=== PATIENT | male | born 1955 | race Caucasian/White ===

== ENCOUNTER 2018-07-11 17:15 | Emergency (ER) | payer BC ==
--- OUTSIDE RECORDS SUMMARY | 2018-07-11 17:16 | XMS REPORT ---
:1955 [facility] Address [address] [place] [address] [address] [place] [address] Care Team Providers Name Role Phone DR SILVIANO JAIMES Unavailable Unavailable Problems This patient has no known problems. Allergies, Adverse Reactions, Alerts This patient has no known allergies or adverse reactions. Medications This patient has no known medications. Encounters Start End Encounter Admission Attending Care Care Encounter Date/Time Date/Time Type Type Clinicians Facility Department ID 2017-09-24 2017-09-24 Outpatient [facility] GRANAD[facility] [place] [id number] 04:36:00 07:00:00 SILVIANO
[2018-07-11 18:47] LABS: Absolute Lymphocytes (CBC) 1.8 K/uL (0.7-4.9); Absolute Monocytes 0.6 K/uL (0.1-1.3); Absolute Neutrophil 2.9 K/uL (1.8-8.0); Basophils % 0.7 % (0-1.3); Eosinophils % 2.6 % (0-4.4); Hematocrit 45.8 % (39.6-49.0); Lymphocytes % 32.5 % (15.3-44.8); MCH 33.2 pg (27.0-35.0); MCV 95.1 fL (80-100); MPV 8.2 fL (7.6-11.3); Monocytes % 11.7 % (3.3-12.3); RBC Red Blood Cell Count 4.81 M/uL (4.33-5.43)
[2018-07-11 18:49] LABS: Protime INR 0.97
[2018-07-11 19:01] LABS: ALT/SGPT 36 U/L (12-78); AST/SGOT 17 U/L (15-37); Albumin 3.9 g/dL (3.4-5.0); Alkaline Phosphatase 75 U/L (45-117); BUN Blood Urea Nitrogen 16 mg/dL (7-18); Bicarbonate 27 mmol/L (21-32); Bilirubin Direct < 0.1 mg/dL (0-0.2); Bilirubin Total 0.2 mg/dL (0.2-1.0); Glucose Level 94 mg/dL (74-106); Magnesium 2.4 mg/dL (1.8-2.4); NT PRO-BNP 10 pg/mL (<125); Potassium 4.2 mmol/L (3.5-5.1); Protein, Total 7.5 g/dL (6.4-8.2); Sodium Level 142 mmol/L (136-145); Troponin (Emerg Dept Use Only) < 0.02 ng/mL (0.0-0.045)
--- NOTE | 2018-07-11 19:23 | RAD REPORT ---
EXAM DESCRIPTION: RAD - Chest Single View - 07/11/2018 6:59 pm CLINICAL HISTORY: CHEST PAIN Chest pain. COMPARISON: No comparisons FINDINGS: Portable technique limits examination quality. The lungs are mildly emphysematous but grossly clear. The heart is normal in size. No displaced fract ures. IMPRESSION: Mild COPD.
--- NOTE | 2018-07-11 20:40 | EDPHYS ---
Physician Documentation [facility] Name: Tomy Lema Age: 63 yrs Sex: Male : 1955 Arrival Date: 07/11/2018 Time: 17:19 Bed 19 Private MD: ED Physician Darryl Luna HPI: 07/11 20:36 This 63 yrs old Male presents to ER via Ambulatory with complaints of Chest gs Pain. 20:36 The patient or guardian reports chest pain that is located primarily in the anterior gs chest wall. Onset: 3 day(s) ago. The pain does not radiate. Associated signs and symptoms: Pertinent negatives: diaphoresis, near syncope, shortness of breath. The chest pain is described as burning, a heaviness. Duration: The patient or guardian reports multiple episodes, that wax and wane, with no pattern, the episodes last approximately 20 minute(s). Modifying factors: The symptoms are alleviated by nothing. the symptoms are aggravated by nothing. Severity of pain: At its worst the pain was moderate in the emergency department the pain has resolved. The patient has experienced similar episodes in the past, a few times. Historical: - Allergies: 17:30 No Known Allergies; ss - Home Meds: 17:30 Allopurinol Oral [Active]; ss - PMHx: 17:30 Gout; ss - PSHx: 17:30 ankle repair; L knee repair; ss - Immunization history:: Adult Immunizations up to date. - Social history:: Smoking status: Patient/guardian denies using tobacco. - Ebola Screening: : Patient denies exposure to infectious person Patient denies travel to an Ebola-affected area in the 21 days before illness onset. ROS: 20:36 All other systems are negative. gs Exam: 20:36 Head/Face: Normocephalic, atraumatic. Eyes: Pupils equal round and reactive to light, gs extra-ocular motions intact. Lids and lashes normal. Conjunctiva and sclera are non-icteric and not injected. Cornea within normal limits. Periorbital areas with no swelling, redness, or edema. ENT: Nares patent. No nasal discharge, no septal abnormalities noted. Tympanic membranes are normal and external auditory canals are clear. Oropharynx with no redness, swelling, or masses, exudates, or evidence of obstruction, uvula midline. Mucous membranes moist. Neck: Trachea midline, no thyromegaly or masses palpated, and no cervical lymphadenopathy. Supple, full range of motion without nuchal rigidity, or vertebral point tenderness. No Meningismus. Chest/axilla: Normal chest wall appearance and motion. Nontender with no deformity. No lesions are appreciated. Cardiovascular: Regular rate and rhythm with a normal S1 and S2. No gallops, murmurs, or rubs. Normal PMI, no JVD. No pulse deficits. Respiratory: Lungs have equal breath sounds bilaterally, clear to auscultation and percussion. No rales, rhonchi or wheezes noted. No increased work of breathing, no retractions or nasal flaring. Abdomen/GI: Soft, non-tender, with normal bowel sounds. No distension or tympany. No guarding or rebound. No evidence of tenderness throughout. Back: No spinal tenderness. No costovertebral tenderness. Full range of motion. Skin: Warm, dry with normal turgor. Normal color with no rashes, no lesions, and no evidence of cellulitis. MS/ Extremity: Pulses equal, no cyanosis. Neurovascular intact. Full, normal range of motion. Neuro: Awake and alert, GCS 15, oriented to person, place, time, and situation. Cranial nerves II-XII grossly intact. Motor strength 5/5 in all extremities. Sensory grossly intact. Cerebellar exam normal. Normal gait. 20:36 Constitutional: The patient appears alert, awake. 20:36 ECG was reviewed by the Attending Physician. Vital Signs: 17:30 BP 146 / 83; Pulse 69; Resp 17; Temp 97.4(TE); Pulse Ox 96% ; Weight 135.17 kg; Height ss 6 ft. 2 in. (187.96 cm); Pain 0/10; 18:36 BP 135 / 83; Pulse 59; Resp 16; Pulse Ox 97% on R/A; tw2 19:11 BP 125 / 79; Pulse 60; Resp 20 S; Pulse Ox 97% on R/A; jd3 20:04 BP 139 / 87; Pulse 63; Resp 15 S; Pulse Ox 98% on R/A; jd3 17:30 Body Mass Index 38.26 (135.17 kg, 187.96 cm) MDM: 18:09 Patient medically screened. 20:36 Differential diagnosis: acute myocardial infarction, anxiety, chest wall pain, gs gastroesophageal reflux disease (GERD). HEART Score: History: Slightly Suspicious (0), ECG: Normal (0), Age: > 45 and < 65 years (1), Risk Factors: No Risk Factors Known (0), Troponin: < or = 1 x Normal Limit (0). Data reviewed: vital signs, nurses notes. Counseling: I had a detailed discussion with the patient and/or guardian regarding: the historical points, exam findings, and any diagnostic results supporting the discharge/admit diagnosis, the presence of at least one elevated blood pressure reading (>120/80) during this emergency department visit, lab results, radiology results, the need for outpatient follow up. Response to treatment: the patient's symptoms have resolved after treatment, the patient's pain is gone. Physician consultation: Jose Christina MD regarding patient's condition, need to evaluate the patient as soon as possible, and will see patient in office. 07/11 18:22 Order name: Basic Metabolic Panel; Complete Time: 19:23 gs 07/11 18:22 Order name: CBC with Diff; Complete Time: 19:23 gs 07/11 18:22 Order name: LFT's; Complete Time: 19:23 gs 07/11 18:22 Order name: Magnesium; Complete Time: 19:23 gs 07/11 18:22 Order name: NT PRO-BNP; Complete Time: 19:23 gs 07/11 18:22 Order name: PT-INR; Complete Time: 19:23 gs 07/11 17:27 Order name: EKG; Complete Time: 17:34 ss 07/11 17:27 Order name: EKG - Nurse/Tech; Complete Time: 17:32 ss 07/11 18:22 Order name: Troponin (emerg Dept Use Only); Complete Time: 19:23 gs 07/11 18:22 Order name: XRAY Chest (1 view); Complete Time: 19:30 gs 07/11 18:22 Order name: Cardiac monitoring; Complete Time: 18:36 gs 07/11 18:22 Order name: IV Saline Lock; Complete Time: 18:36 gs 07/11 18:22 Order name: Labs collected and sent; Complete Time: 18:36 gs 07/11 18:22 Order name: O2 Per Protocol; Complete Time: 18:36 gs 07/11 18:22 Order name: O2 Sat Monitoring; Complete Time: 18:36 EC:36 Rate is 64 beats/min. Rhythm is regular. FL interval is prolonged. QRS interval is gs normal. No Q waves. T waves are Normal. No ST changes noted. Clinical impression: Abnormal EKG without significant change and 1st degree heart block. Interpreted by me. Administered Medications: No medications were administered Disposition: 07/11/18 20:39 Discharged to Home. Impression: Chest pain, unspecified. - Condition is Stable. - Discharge Instructions: Nonspecific Chest Pain, Managing Your Hypertension. - Medication Reconciliation Form, Thank You Letter, Antibiotic Education, Prescription Opioid Use form. - Follow up: Jose Christina MD; When: 2 - 3 days; Reason: Re-evaluation by your physician. Signatures: Dispatcher [employer] EDKY Gloria Guadalupe RN RN ss Darryl Luna MD MD Haja Esposito RN RN jd3 Corrections: (The following items were deleted from the chart) 20:49 20:39 07/11/2018 20:39 Discharged to Home. Impression: Chest pain, unspecified. jd3 Condition is Stable. Forms are Medication Reconciliation Form, Thank You Letter, Antibiotic Education, Prescription Opioid Use. Follow up: Jose Christina; When: 2 - 3 days; Reason: Re-evaluation by your physician.
--- NOTE | 2018-07-11 20:40 | ER ---
Nurse's Notes [facility] Name: Tomy Lema Age: 63 yrs Sex: Male : 1955 Arrival Date: 07/11/2018 Time: 17:19 Bed 19 Private MD: Diagnosis: Chest pain, unspecified Presentation: 07/11 17:28 Presenting complaint: Patient states: intermittent chest discomfort x 3 days. ss Transition of care: patient was not received from another setting of care. Onset of symptoms was July 08, 2018. Risk Assessment: Do you want to hurt yourself or someone else? Patient reports no desire to harm self or others. Initial Sepsis Screen: Does the patient meet any 2 criteria? No. Patient's initial sepsis screen is negative. Does the patient have a suspected source of infection? No. Patient's initial sepsis screen is negative. Care prior to arrival: None. 17:28 Method Of Arrival: Ambulatory ss 17:28 Acuity: JEFERSON 3 ss Historical: - Allergies: 17:30 No Known Allergies; ss - Home Meds: 17:30 Allopurinol Oral [Active]; ss - PMHx: 17:30 Gout; ss - PSHx: 17:30 ankle repair; L knee repair; ss - Immunization history:: Adult Immunizations up to date. - Social history:: Smoking status: Patient/guardian denies using tobacco. - Ebola Screening: : Patient denies exposure to infectious person Patient denies travel to an Ebola-affected area in the 21 days before illness onset. Screenin:56 Abuse screen: Denies threats or abuse. Nutritional screening: No deficits noted. tw2 Tuberculosis screening: No symptoms or risk factors identified. Fall Risk None identified. Assessment: 17:56 Pain: Pain does not radiate. Pain began 2-3 days ago. tw2 18:07 Reassessment: dr gaffney at bedside at this time. tw2 18:07 General: Appears in no apparent distress. well groomed, Behavior is calm, cooperative, tw2 appropriate for age. Pain: Complains of pain in chest. Neuro: Level of Consciousness is awake, alert, obeys commands, Oriented to person, place, time, situation. Cardiovascular: Heart tones S1 S2 Patient's skin is warm and dry. Cardiovascular: Edema is 1+ to left midcalf, left ankle, right midcalf and right ankle. Respiratory: Reports shortness of breath on exertion couple of weeks now i have been noticing i get winded Airway is patent Respiratory effort is even, unlabored, Respiratory pattern is regular, symmetrical, Breath sounds are clear bilaterally. GI: Bowel sounds present X 4 quads. Abd is soft X 4 quads Reports bloating, belching pt reports last bm today, but before that he went 4 days without a bm. : No signs and/or symptoms were reported regarding the genitourinary system. EENT: No signs and/or symptoms were reported regarding the EENT system. Derm: Skin is intact, is healthy with good turgor, Skin is dry, Skin temperature is warm. 19:09 Reassessment: Patient appears in no apparent distress at this time. Patient and/or jd3 family updated on plan of care and expected duration. Pain level reassessed. Patient is alert, oriented x 3, equal unlabored respirations, skin warm/dry/pink. Patient states feeling better. 20:02 Reassessment: Patient appears in no apparent distress at this time. Patient and/or jd3 family updated on plan of care and expected duration. Pain level reassessed. Patient is alert, oriented x 3, equal unlabored respirations, skin warm/dry/pink. awaiting fallow-up from provider. 20:48 Reassessment: Patient appears in no apparent distress at this time. Patient and/or jd3 family updated on plan of care and expected duration. Pain level reassessed. Patient is alert, oriented x 3, equal unlabored respirations, skin warm/dry/pink. Patient states feeling better. Vital Signs: 17:30 BP 146 / 83; Pulse 69; Resp 17; Temp 97.4(TE); Pulse Ox 96% ; Weight 135.17 kg; Height ss 6 ft. 2 in. (187.96 cm); Pain 0/10; 18:36 BP 135 / 83; Pulse 59; Resp 16; Pulse Ox 97% on R/A; tw2 19:11 BP 125 / 79; Pulse 60; Resp 20 S; Pulse Ox 97% on R/A; jd3 20:04 BP 139 / 87; Pulse 63; Resp 15 S; Pulse Ox 98% on R/A; jd3 17:30 Body Mass Index 38.26 (135.17 kg, 187.96 cm) ED Course: 17:19 Patient arrived in ED. mr 17:29 Triage completed. ss 17:30 Arm band placed on right wrist. 17:55 Darryl Gaffney MD is Attending Physician. 17:56 Taniya Baeza, RN is Primary Nurse. tw2 17:56 Bed in low position. Call light in reach. Adult w/ patient. cupola liner on. Pulse tw2 ox on. NIBP on. 17:57 Patient maintains SpO2 saturation greater than 95% on room air. tw2 18:07 Inserted saline lock: 20 gauge in right antecubital area, using aseptic technique. tw2 Blood collected. 18:59 XRAY Chest (1 view) In Process Unspecified. EDMS 19:05 Report given to KEYLA Thurman. tw2 20:39 Jose Christina MD is Referral Physician. gs 20:48 No provider procedures requiring assistance completed. IV discontinued, intact, jd3 bleeding controlled, No redness/swelling at site. Pressure dressing applied. Administered Medications: No medications were administered Outcome: 20:39 Discharge ordered by . gs 20:48 Discharged to home ambulatory, with family. jd3 20:48 Condition: stable 20:48 Discharge instructions given to patient, family, Instructed on discharge instructions, follow up and referral plans. Demonstrated understanding of instructions, follow-up care. 20:49 Patient left the ED. jd3 Signatures: Dispatcher [employer] [facility] Rosanne LeGloria, KEYLA RAMIRES Taniya Baeza RN RN tw2 Darryl Gaffney MD MD Haja Esposito RN RN jd3
--- NOTE | 2018-07-12 07:06 | EKG ---
Test Date: 2018-07-11 Test Time: 17:30:19 Reproduction Specialist: MUSA MEASUREMENT RESULTS: Intervals: Rate: 64 GA: 208 QRSD: 98 QT: 420 QTc: 433 [place]: P: 19 GA: 208 QRS: -3 T: 38 INTERPRETIVE STATEMENTS: Normal sinus rhythm Normal ECG Compared to ECG 09/08/2017 13:59:52 No significant changes Electronically Signed On 07-12-18 07:05:28 VACUUM REPAIRER by Sunny Leyva
== END 2018-07-11 20:49 | disposition home or self-care (01) ==
LOC: ER 17:15
DX: R07.9 Chest pain, unspecified (principal)
CPT/HCPCS: 36415; 71045; 80048; 80076; 83735; 83880; 84484; 85025; 85610; 93005; 99285